=== PATIENT | female | born 2000 | race African-American/Black ===

== ENCOUNTER 2018-07-18 13:55 | Emergency (ER) | payer MEDICAID ==
[~2018-07-18] VITALS: Ht 152.4 cm; Wt 40.0 kg
[2018-07-18] MEDS ORDERED: IBUPROFEN 600MG TABLET PO STA (16:12)
[2018-07-18 18:20] VITALS: BP 113/67
== END 2018-07-18 18:28 | disposition home or self-care (01) ==
LOC: ER 13:55
DX: R07.9 Chest pain, unspecified (principal)
CPT/HCPCS: 71045; 81025; 93005; 99283

== ENCOUNTER 2022-05-17 12:49 | Emergency (ER) | payer MEDICAID ==
[~2022-05-17] VITALS: Ht 149.9 cm; Wt 47.0 kg
[2022-05-17 12:57] VITALS: BP 127/74
[2022-05-17] MEDS ORDERED: BACITRACIN ZINC OINT UDPKT TOP ONE (16:00)
[2022-05-17] MEDS ORDERED: BO1 TP (16:21)
[2022-05-17] MEDS ORDERED: [UNRECOGNIZED DRUG - CODE] TP (16:21)
== END 2022-05-17 16:52 | disposition home or self-care (01) ==
LOC: ER 12:49
DX: S21.011A Laceration without foreign body of right breast, initial encounter (principal); F32.A Depression, unspecified; F41.9 Anxiety disorder, unspecified; J45.909 Unspecified asthma, uncomplicated; W22.8XXA Striking against or struck by other objects, initial encounter; Y93.E1 Activity, personal bathing and showering; Y92.012 Bathroom of single-family (private) house as the place of occurrence of the external cause
CPT/HCPCS: 99282; Z7610